=== PATIENT | female | born 1980 | race Two or more races ===

== ENCOUNTER 2024-05-15 10:41 | Emergency (ER) | payer OTHER ==
[~2024-05-15] VITALS: Ht 162.6 cm; Wt 54.4 kg
[2024-05-15] MEDS ORDERED: ONDANSETRON HCL 2 MG/ML VIAL IV ONE (11:45)
[2024-05-15] MEDS ORDERED: KETOROLAC TROMETHAMINE 60 MG VIAL IM ONE ×2 (11:45→19:15)
[2024-05-15] MEDS ORDERED: 0.9 % SODIUM CHLORIDE 1,000 ML IV SCH (11:45)
[2024-05-15 12:54] LABS: URINE APPEARANCE Cloudy; URINE BILIRRUBIN Negative (NEGATIVE); URINE BLOOD Negative; URINE COLOR Dark Yellow; URINE GLUCOSE Negative (NEGATIVE); URINE KETONE Negative (NEGATIVE); URINE LEUKOCYTE Negative; URINE NITRATE Positive; URINE PROTEIN 30 (NEGATIVE)
[2024-05-15 12:55] LABS: URINE EPITHELIAL CELLS 33.5 uL (0.0-38.8); URINE RBC 2.6 uL (0.0-20.8)
[2024-05-15 13:05] LABS: HEMATOCRIT 45.5 % (36.0-45.00); HEMOGLOBIN 15.9 g/dL (12.0-15.00); MEAN CELL VOLUME 84.9 fL (80.00-100.00); MEAN CORPUSCULAR HEMOGLOBIN 29.6 pg (27.00-32.0); MEAN CORPUSCULAR HGB CONC 34.9 g/dl (32.0-36.0); PLATELET COUNT 144 K/uL (150-450); RED BLOOD COUNT 5.36 M/uL (4.00-6.00); RED CELL DISTRIBUTION WIDTH 16.1 % (11.5-14.5)
[2024-05-15 13:22] LABS: URINE BACTERIA > 9821.5 uL (0.0-1933); URINE CAST 0.58 uL (0.0-1.40)
[2024-05-15 13:34] LABS: ALBUMIN 3.7 gm/dL (3.4-5.0); BILIRUBIN TOTAL 0.25 mg/dL (0.3-1.2); CREATININE SERUM 0.49 mg/dL (0.55-1.02); GFR 138.5; GLOBULINA 4.2 G/DL (2.4-3.5); POTASSIUM 3.15 mEq/L (3.5-5.1); TOTAL PROTEIN 7.9 gm/dL (6.4-8.2)
[2024-05-15] MEDS ORDERED: CEFTRIAXONE SODIUM 1,000 MG VIAL IV ONE (14:45)
[2024-05-15] MEDS ORDERED: KETO10TA2 PO (18:53)
[2024-05-15] MEDS ORDERED: BENZONATATE200 M1 PO (18:53)
[2024-05-15] MEDS ORDERED: BACTRIM DS TAB1 EACH PO (18:53)
[2024-05-15] MEDS ORDERED: PEPCID AC20 MG PO (18:53)
[2024-05-15] MEDS ORDERED: ZOFRAN8 MG PO (18:53)
[2024-05-15] MEDS ORDERED: TAMS0.4C PO (18:53)
[2024-05-15] MEDS ORDERED: ORPHENADRINE CITRATE 30 MG/ML AMPUL IM ONE (19:15)
[2024-05-15] MEDS ORDERED: TAMSULOSIN HCL 0.4 MG CAP PO ONE (19:15)
== END 2024-05-15 19:28 | disposition home or self-care (01) ==
LOC: ER 10:43
PROVIDERS: General Practice
DX: R10.9 Unspecified abdominal pain (principal)

== ENCOUNTER 2025-02-27 17:16 | Emergency (ER) | payer OTHER ==
[~2025-02-27] VITALS: Ht 162.6 cm; Wt 52.2 kg
[~2025-02-27 17:16] MED LIST: BACTRIM DS TAB1 EACH PO; BENZONATATE200 M1 PO; KETO10TA2 PO; PEPCID AC20 MG PO; TAMS0.4C PO; ZOFRAN8 MG PO
[2025-02-27 17:22] VITALS: BP 129/78; O2SAT 100
[2025-02-27] MEDS ORDERED: TETANUS & DIPHTHERIA TOX,ADULT 0.5 ML VIAL IM ONE (17:45)
[2025-02-27] MEDS ORDERED: LIDOCAINE HCL 1% 10ML VIAL PERCUT ONE (17:45)
[2025-02-27] MEDS ORDERED: TRAMADOL HCL 50 MG TABLET PO ONE (17:45)
[2025-02-27] MEDS ORDERED: CEFTRIAXONE SODIUM 1,000 MG VIAL IM ONE (17:45)
[2025-02-27] MEDS ORDERED: LIDOCAINE HCL 1% 10ML VIAL ONE (17:57)
[2025-02-27] MEDS ORDERED: CEFTRIAXONE SODIUM 1,000 MG VIAL ONE (17:58)
[2025-02-27] MEDS ORDERED: DIPHTH,PERTUSS(ACELL),TET VAC 0.5 ML SYRINGE IM ONE (17:58)
[2025-02-27] MEDS ORDERED: CEFUROXIME500 MG PO (19:09)
== END 2025-02-27 19:34 | disposition home or self-care (01) ==
LOC: ER 17:16
DX: S51.012A Laceration without foreign body of left elbow, initial encounter (principal); T14.8XXA Other injury of unspecified body region, initial encounter; V49.9XXA Car occupant (driver) (passenger) injured in unspecified traffic accident, initial encounter; Y93.89 Activity, other specified; Y92.413 State road as the place of occurrence of the external cause; Y99.9 Unspecified external cause status

== ENCOUNTER 2025-03-17 16:37 | Emergency (ER) | payer OTHER ==
[~2025-03-17] VITALS: Ht 162.6 cm; Wt 52.2 kg
[~2025-03-17 16:37] MED LIST changes: +CEFUROXIME500 MG PO
== END 2025-03-17 22:49 | disposition home or self-care (01) ==
LOC: ER 16:38
DX: Z48.02 Encounter for removal of sutures (principal)